=== PATIENT | male | born 1980 | race Caucasian/White ===

== ENCOUNTER 2017-09-08 15:56 | Emergency (ER) | payer MEDICAID ==
[~2017-09-08] VITALS: Ht 170.2 cm; Wt 83.5 kg
[2017-09-08 16:01] VITALS: Ht 170.2 cm; Wt 83.5 kg
[2017-09-08 17:40] LABS: BASOPHIL % 0.7 % (0-2); PLATELET COUNT 194 x10^3mcL (130-400); RED CELL DISTRIBUTION WIDTH 13.4 % (11.5-14.5)
[2017-09-08 17:47] LABS: CALCIUM 8.8 mg/dL (8.5-10.1); CARBON DIOXIDE 26.2 mmol/L (21-32); CHLORIDE SERUM 104 mmol/L (98-107); CREATININE SERUM 0.8 mg/dL (0.7-1.3); GFR1 > 60 mL/min; GLUCOSE SERUM 99 mg/dL (74-106); POTASSIUM SERUM 3.4 mmol/L (3.5-5.1); SODIUM SERUM 140 mmol/L (136-145)
[2017-09-08 18:00] LABS: ALBUMIN 3.9 g/dL (3.4-5.0); ALKALINE PHOSPHATASE 107 U/L (46-116); ALT/SGPT 55 U/L (16-63); AST/SGOT 19 U/L (15-37); BILIRUBIN TOTAL 0.82 mg/dL (0.20-1.00); C REACTIVE PROTEIN 8.3 mg/dL (<=0.9)
[2017-09-08 18:05] LABS: T3 TOTAL 0.97 ng/mL
[2017-09-08 18:14] LABS: FREE T4 0.84 ng/dL (0.76-1.46); FREE THYROXINE INDEX 1.8 ug/dL (1.4-4.5); T4(THYROXINE) 5.6 ug/dL (4.7-13.3)
[2017-09-08 18:28] LABS: CK-MB < 0.5 ng/mL (0-3.6); CREATINE KINASE 68 U/L (39-308)
[2017-09-08 18:38] VITALS: BP 120/75
[2017-09-08 19:14] LABS: ERYTHROCYTE SED RATE 17 mm/hr (0-15)
== END 2017-09-08 18:38 | disposition home or self-care (01) ==
LOC: ED 15:56
PROVIDERS: Specialist
DX: L03.115 Cellulitis of right lower limb (principal)
CPT/HCPCS: 36600; 83880; 84439; 90715; J0696; J1885; J2405; J3010

== ENCOUNTER 2017-09-11 13:33 | Emergency (ER) | payer MEDICAID ==
[2017-09-11 13:51] VITALS: BP 128/90
== END 2017-09-11 18:14 | disposition home or self-care (01) ==
LOC: ED 13:33
DX: Z48.00 Encounter for change or removal of nonsurgical wound dressing (principal); R03.0 Elevated blood-pressure reading, without diagnosis of hypertension